=== PATIENT | female | born 1935 | race Caucasian/White ===

== ENCOUNTER → 2016-12-12 | Outpatient (CLI) | payer OTHER ==
[~2016-12-12] MED LIST: ACCUPRIL PO; ACCUPRIL40 MG PO; ALLEGRA PO; AMLODIPINE BESYL5 MG PO; ASPIRIN ENTERI325 M1 PO; ASPIRIN81 MG PO; ASPIRINEC PO; CALTRATE PLUS T1 TAB PO; CARVEDILOL6.25 MG; CLOPIDOGREL BIS75 MG PO; CYMBALTA PO; DARVOCET-N 1001 TA1 PO; DARVOCET-N 1001 TAB PO; DEXILANT60 MG PO; DULOXETINE HCL60 MG PO; ELIQUIS5 MG PO; FLEXERIL PO; FLEXERIL10 MG PO; FLONASE 0.05% N16 GM; GARLIC; HYDROCHLOROTH12.5 M1 PO; HYDROCHLOROTH12.5 MG PO; HYDROCODON-ACE1 EAC7 PO; HYDROCODON-ACE1 EAC9 PO; HYDROCODONE-APA1 T33 PO; IMDUR-ER30 M2 PO; ISORDIL10 MG PO; ISOSORBIDE MONO60 M1 PO; K-DUR20 ME1 PO; LEVAQUIN PO; LORAZEPAM1 MG PO; LORTAB 7.5-5001 TAB PO; LYRICA PO; MELOXICAM15 MG; MELOXICAM15 MG PO; METOPROLOL TART25 MG PO; MOBIC PO; NEXIUM PO; NITROGLYGERIN0.4 MG SL; NITROSTAT0.4 MG SL; NORVASC PO; NORVASC10 MG PO; PLAVIX PO; PRAVACHOL20 MG PO; PRAVACHOL80 MG PO; PRINIVIL40 MG; PRINIVIL40 MG PO; RANITIDINE HCL150 M1 PO; TENORETIC 100 T1 TAB PO; ULTRAM PO; VICODIN 5/500 T1 TAB PO; VIMOVO 500-201 EACH PO; VIT E; VITAMIN D 4001 UDTAB PO; XANAX0.5 MG PO
--- NOTE | ~2016-12-12 | MY11 ---
[facility] A Service [facility] RADIOLOGY TEXT RESULTS PATIENT: DAR WASHINGTON LOCATION: [facility] : 34 UNIT #: [id number] AGE: [address]: Gay Wright SEX: F ORDER DR: [id number] [place] [id number] O MR#: [id number] Acc #: [id number] NAME: DAR WASHINGTON : 1935 SEX: F STUDY DATE/TIME: 12/12/2016 11:46 UNIT: [facility] ROOM: STUDY DESCRIPTION: MY Mammogram Screening Dig Nick Attending Physician: Gay Wright A.P.R.N. Referring Physician: Gay Wright A.P.R.N. Ordering Physician: Gay Wright A.P.R.N. Primary Care Physician: Pina Alcantar M.D. MEDICAL IMAGING REPORT This report is preliminary unless electronic signature is present. EXAM Bilateral digital screening mammogram with CAD INDICATION Breast cancer screening. 81-year-old asymptomatic female who reports prior benign excisional biopsy of the right breast. Patient denies personal or family history of breast cancer. COMPARISON 09/12/2014, 09/09/2013, 07/20/2012, 07/01/2011, 06/10/2010, 02/10/2009, 02/07/2008, 06/19/2006. FINDINGS There are scattered fibroglandular tissues. No suspicious findings are present. IMPRESSION No mammographic evidence of malignancy. Annual screening mammography is recommended for as long as the patient is in good health ([employer]). A result letter will be sent to the patient. Patients over the age of 40 are entered into a reminder system with target due date for the next mammogram. BIRADS: 1 Negative Dictated by... [facility] A [facility] RADIOLOGY TEXT RESULTS PATIENT: DAR WASHINGTON LOCATION: [facility] : 34 UNIT #: [id number] AGE: [address]: Gay Wright SEX: F ORDER DR: Scott Acevedo M.D. THIS IS AN ELECTRONICALLY VERIFIED REPORT Scott Acevedo M.D. at 12/12/2016 5:33 PM EMELYN/william TD: 12/12/2016 13:58 JOB #: [id number] MEDICAL IMAGING REPORT Page 1 of 1
== END | disposition home or self-care (01) ==
LOC: SMAM 11:00
DX: Z12.31 Encounter for screening mammogram for malignant neoplasm of breast (principal); Z91.89 Other specified personal risk factors, not elsewhere classified
CPT/HCPCS: G0202

== ENCOUNTER 2017-01-03 15:56 | Observation (INO) | payer OTHER ==
--- NOTE | ~2017-01-03 | ST ---
Unit #: [id number] #: [id number] Patient: DAR WASHINGTON [id number] [facility]. [address] [address] [id number] I MR#: [id number] NAME: DAR WASHINGTON. : 1935 SEX: F STUDY DATE/TIME: 01/04/2017 UNIT: C3A PCU ROOM: [facility] STUDY DESCRIPTION: Attending Physician: Hugo Wells M.D. Primary Care Physician: Pina Alcantar M.D. CARDIOLOGY REPORT EXAM EKG portion of Lexiscan Cardiolite stress test. REASON FOR EXAM Chest pain. DISCUSSION Baseline EKG reveals atrial flutter with a ventricular rate of 96 beats per minute. Nonspecific ST-T wave changes noted. A total of 0.4 mg of Lexiscan was injected per protocol followed by Cardiolite. There were no complaints of chest pain. There were no arrhythmias noted from baseline. There were no ST or T wave changes to suggest ischemia. The patient's blood pressure did drop after Lexiscan was injected to 90/54 mmHg and she did have some nausea. Blood pressure improved to 103/53 and the nausea resolved. No reversal agent was given. Test was stopped due to protocol completion. IMPRESSION 1. Negative EKG portion of Lexiscan Cardiolite stress test. 2. There were no complaints of chest pain. 3. The patient's blood pressure did drop to 90/54 mmHg and she was nauseated but no reversal agent was required. Her blood pressure improved. 4. There were no sustained arrhythmias noted from baseline. 5. There were no ST or T wave changes to suggest ischemia. 6. Please correlate with Cardiolite images. Dictated by... Nery Fuentes APRN for Everardo Amador TD: 01/04/2017 15:30 JOB #: [id number] Unit #: [id number] #: [id number] Patient: DAR WASHINGTON CARDIOLOGY REPORT Page 1 of 1 X CARDIOLOGY REPORT
--- NOTE | ~2017-01-03 | EKG ---
PATIENT: DAR WASHINGTON UNIT #: [id number] Ventricular Rate: 82 BPM Atrial Rate: 85 BPM QRS Duration: 88 ms Q-T Interval: 392 ms QTC Calculation(Bezet): 457 ms Calculated R [place]: 12 degrees Calculated T [place]: 5 degrees Diagnosis Line: Atrial fibrillation Diagnosis Line: Abnormal ECG Diagnosis Line: When compared with ECG of 18-OCT-2015 10:59, Diagnosis Line: Atrial fibrillation has replaced Sinus rhythm Diagnosis Line: Nonspecific T wave abnormality now evident in Diagnosis Line: Inferior leads Diagnosis Line: Confirmed by NANO POZO MD ([id number]) on 01/05/2017 Diagnosis Line: 10:30:37 AM INTERPRETING MD: NOHELIA CAMARENA
--- NOTE | ~2017-01-03 | HP ---
Unit #: [id number] #: [id number] Patient: DAR WASHINGTON [id number] [facility]. [address] [place], [place] [address] [id number] I MR#: [id number] NAME: DAR WASHINGTON. ROOM: 302 Age: 81 Sex: F Admission Date: 01/03/2017 : 1935 Attending Physician: Hugo Wells M.D. Primary Care Physician: Pina Alcantar M.D. HISTORY AND PHYSICAL HISTORY OF PRESENT ILLNESS This is an 81-year-old white female previously known to Dr. Wells and now Dr. Herman with a past medical history of coronary artery disease status post cardiac catheterization on July 29, 2011 which revealed 90% stenosis in the LAD involving the first diagonal. The first obtuse marginal was 70% to 75%. Patient underwent PCI and drug-eluting stent in the LAD at the level of the diagonal. Additional past medical history includes: Hypertension, hyperlipidemia, GERD, osteoarthritis, rheumatoid arthritis, and mild valvular disease. A 2D echocardiogram, November 2009, revealed an ejection fraction of 60% with a mild mitral valve prolapse and mild mitral, tricuspid, and aortic regurgitation. Right ventricular systolic pressure was elevated at 40-50 suggesting moderate pulmonary hypertension. The patient states that she had another cardiac catheterization by Dr. Herman three to four years ago at [facility] which revealed a 90% stenosis. An additional stent was placed. She has had no stress test or cardiac catheterization since that time, according to her knowledge. Records were requested from [facility]. According to records though, the patient actually underwent a cardiac catheterization May 26, 2015. The right coronary artery was 80% which was reduced to zero percent with a Resolute drug-eluting stent. Obtuse marginal was 70% and mid to proximal LAD was 50% to 70%. She presented to the emergency department with complaints of chest pain. She states that over the past couple of days she has had intermittent episodes of chest pain. The pain is in her mid sternal to left anterior chest. It is described as tightness. It goes up into her neck. There are no associated symptoms of nausea, vomiting, or dyspnea. She has had some intermittent diaphoresis. She took some nitroglycerin on Monday and the pain resolved. All weekend, she felt just kind of weak and fatigued. On Monday, the pain returned while she was resting. She took another nitroglycerin. Her family urged her to come to the hospital. Her pain resolved quickly and she is currently asymptomatic. She denies any dizziness or syncope. She has had some occasional palpitations but not during episodes of pain. She does have a recent cough, which is nonproductive. She occasionally has swallowing issues but not regularly. She denies any lower extremity edema. In the emergency department, her temperature was 98.3, pulse 89, respirations 16, blood pressure 172/81 mmHg. Initial cardiac enzymes were negative. However, EKG revealed atrial flutter with a controlled ventricular rate of 82 beats per minute which is a new diagnosis according to the patient. Additional labs were unremarkable except for a low potassium of 3.3. She was started on aspirin and nitroglycerin. She was admitted for further observation of chest pain. Serial cardiac enzymes Unit #: [id number] #: [id number] Patient: DAR WASHINGTON were negative and she ruled out for a myocardial infarction. PAST MEDICAL HISTORY 1. Coronary artery disease, status post cardiac catheterization on May 26, 2015, per Dr. Herman, which revealed left ventricular end diastolic pressure 10 mmHg. Ejection fraction 50%. Left main normal. LAD proximal 50%, mid 70%. Left circumflex and obtuse marginal 70%. Right coronary artery 80%. Status post PCI and Resolute stent in the mid right coronary artery reducing stenosis to zero percent. 2. Previous cardiac catheterization, July 29, 2011, with PCI and drug-eluting stent in the LAD at the level of the diagonal. 3. A 2D echocardiogram, December 08, 2009, revealed an ejection fraction of 60%. Mild LVH. Mild mitral valve prolapse. Mild mitral regurgitation, tricuspid regurgitation, and aortic regurgitation. RVSP 40-50 mmHg suggesting moderate pulmonary hypertension. 4. Hypertension. 5. Hyperlipidemia. 6. GERD. 7. Osteoarthritis. 8. Rheumatoid arthritis. 9. Anxiety. 10. Nonsmoker. PAST SURGICAL HISTORY 1. Right rotator cuff repair. 2. Cholecystectomy. 3. Hysterectomy. 4. Breast biopsy which was negative for malignancy. 5. Bilateral knee surgery. 6. Right ankle fracture repair. HOME MEDICATIONS List of home medications include: 1. Amlodipine 5 mg p.o. daily. 2. Lisinopril 40 mg p.o. daily. 3. Meloxicam 15 mg p.o. daily. 4. Pravastatin 80 mg p.o. daily. 5. Dexilant 60 mg p.o. daily. 6. Isosorbide mononitrate 60 mg p.o. daily. 7. Cymbalta 60 mg p.o. daily. 8. Hydrochlorothiazide 12.5 mg p.o. daily. 9. S[place]uma 7.5/325 mg one tablet p.o. b.i.d. 10. Lorazepam 1 mg p.o. daily. SOCIAL HISTORY The patient is a nonsmoker. There are no reports of alcohol or illicit drug use. FAMILY HISTORY Significant for heart disease. REVIEW OF SYSTEMS A 10-point review of systems negative except for details noted above in HPI. PHYSICAL EXAMINATION VITAL SIGNS: Temperature 97.9, pulse 84, blood pressure 147/85. Unit #: [id number] #: [id number] Patient: DAR WASHINGTON CONSTITUTIONAL: This is an 81-year-old white female in no acute distress. SKIN: Warm and dry. NECK: Supple. No jugular vein distention. No hepatojugular reflux. Normal carotid upstrokes. No carotid bruits auscultated. HEART: S1, S2. Irregularly irregular. A soft systolic ejection murmur at the left sternal border. No rubs or gallops. LUNGS: Bilateral breath sounds have good air entry through all lung avina. Respirations even and nonlabored. No rales, rhonchi, or wheezes. ABDOMEN: Soft, nontender, nondistended. Positive bowel sounds auscultated x4 quadrants. No ascites noted. EXTREMITIES: Bilateral lower extremities have no pretibial pitting edema. DP and PT pulses 2+. Capillary refill less than 3 seconds. DIAGNOSTIC STUDIES LABORATORY: White blood cell count 4.4, hemoglobin 14.2, hematocrit 42.6, platelets 190,000. Sodium 140, potassium 3.3, chloride 105, CO2 of 26, BUN 11, creatinine 0.5, glucose 112. Troponin 0.03 and 0.03. INR 1. Total cholesterol 215, triglycerides 91, LDL 135, HDL 62. TSH 1.55. IMAGING: Chest x-ray reveals mild cardiomegaly with a tortuous aorta. CARDIOVASCULAR: Electrocardiogram reveals atrial flutter with a ventricular rate of 82 beats per minute. T-wave inversion in the inferior leads. QTc 457 ms. A 2D echocardiogram on January 04, 2017, revealed an ejection fraction of 65%. Moderate left ventricular hypertrophy. Mildly dilated left atrium. Aortic valve leaflet sclerotic with no stenosis. Moderate aortic regurgitation. Mitral annular calcification present. Moderate mitral valve prolapse. Moderate mitral regurgitation. Moderate tricuspid regurgitation. Right ventricular systolic pressure 38 mmHg. No pericardial effusion. IMPRESSION 1. Chest pain, questionably from angina pectoris. 2. Atrial fibrillation/atrial flutter, newly diagnosed, unknown duration. 3. Coronary artery disease with history of percutaneous coronary intervention and stent in the right coronary artery in May 2015 and left anterior descending at the level of the diagonal in July 2011. 4. Hypertension. 5. Hyperlipidemia. 6. Osteoarthritis. 7. Rheumatoid arthritis. 8. A 2D echocardiogram, January 04, 2017, revealed an ejection fraction of 65% with moderate mitral and tricuspid regurgitation as well as a moderate mitral valve prolapse. 9. Hypokalemia, supplemented. 10. Nonsmoker. PLAN The patient presented to the hospital with complaints of chest pain. Cardiac enzymes were negative and she ruled out for a myocardial infarction. She underwent a Lexiscan Cardiolite stress test and a 2D echocardiogram. Ejection fraction was normal and there was moderate valvular disease which can be managed medically. The patient's stress test revealed an extremely small area of possible stress-induced ischemia Unit #: [id number] #: [id number] Patient: DAR WASHINGTON involving the anteroapical wall of the left ventricle. The patient was recommended for cardiac catheterization versus medical management. She has decided on medical management for the time being. She has been started on metoprolol for control of atrial fibrillation. Her isosorbide has been increased to prevent chest pain. She could be considered for Ranexa as an outpatient. The cost of Eliquis has been assessed and is affordable at $8.25 per month. The patient has been started on Eliquis and has been instructed to follow up with her normal portfolio management marketing, Dr. Herman, as an outpatient. If in six to eight weeks her heart rate remains irregular, she could be considered for direct current cardioversion. She has been advised to return to the emergency department for worsening chest pain. Dictated by LUCIAN Roberts M.D. TR/ch TD: 01/04/2017 15:38 JOB #: [id number] HISTORY AND PHYSICAL Page 1 of 1 X X HISTORY AND PHYSICAL
--- NOTE | ~2017-01-03 | TH ---
Unit #: [id number] #: [id number] Patient: DAR WASHINGTON [id number] [address] [address] [id number] I MR#: [id number] NAME: DAR WASHINGTON. : 1935 SEX: F STUDY DATE/TIME: UNIT: C3A U ROOM: [facility] STUDY DESCRIPTION: Lexiscan stress test -Nuclear Attending Physician: Hugo Wells M.D. Primary Care Physician: Pina Alcantar M.D. CARDIOLOGY REPORT PROCEDURE PERFORMED Lexiscan Cardiolite stress test - Nuclear portion. PROCEDURE Using technetium 99m-labeled Cardiolite, rest and stress SPECT images were obtained. Multiple SPECT images were obtained in various views, including horizontal and vertical long axis and short axis views of the left ventricle. Images were obtained by gated SPECT method. The patient was administered 10.9 mCi of Cardiolite at rest. The patient was administered 27.5 mCi of Cardiolite after Lexiscan infusion was completed. On the stress images, there is an extremely small area of mildly decreased tracer uptake activity in the anteroseptal wall. The rest images show normal perfusion. Comparing the rest and stress images, an extremely small area of possible stress-induced ischemia involving the anteroseptal wall of the left ventricle cannot be ruled out. The left ventricular ejection fraction is calculated to be 59%. There no focal wall motion abnormality seen. CONCLUSION 1. An extremely small area of possible stress-induced ischemia involving the anteroapical wall of the left ventricle cannot be ruled out. 2. The left ventricular ejection fraction is calculated to be 59%. 3. There no focal wall motion abnormality seen. 4. Technically limited study. Clinical correlation is requested. Dictated by... Everardo Amador TD: 01/04/2017 15:11 JOB #: [id number] Unit #: [id number] #: [id number] Patient: DAR WASHINGTON CARDIOLOGY REPORT Page 1 of 1 X Quin Hernandez MD <ELECTRONICALLY SIGNED> 03/11/17 1426 CARDIOLOGY REPORT
--- NOTE | ~2017-01-03 | CR72 ---
[facility] A Service of [facility] & [facility] RADIOLOGY TEXT RESULTS PATIENT: DAR WASHINGTON LOCATION: [facility] 302-01 : 34 UNIT #: [id number] AGE: [address]: Hugo Wells MD SEX: F ORDER DR: [id number] [facility] [address] [facility] [address] [facility]. [place], [place] [address] [id number] E MR#: [id number] Acc #: [id number] NAME: DAR WASHINGTON. : 1935 SEX: F STUDY DATE/TIME: 01/03/2017 16:23 UNIT: [facility] ROOM: STUDY DESCRIPTION: CR Chest Single View Portable Attending Physician: Dinesh Bolivar M.D. Ordering Physician: Dinesh Bolivar M.D. Primary Care Physician: Pina Alcantar M.D. MEDICAL IMAGING REPORT This report is preliminary unless electronic signature is present EXAM Portable chest HISTORY Chest pain onset 3 days ago. TECHNIQUE A single AP view chest was obtained and compared with 10/18/2015. FINDINGS Since previous examination, no new infiltrates are seen. Both lungs are clear with normal vascular markings. Heart size is upper limits of normal and the aorta is tortuous and calcified. IMPRESSION Mild cardiomegaly with a tortuous aorta. No active pulmonary disease. Dictated by... Guy Shepherd M.D. THIS IS AN ELECTRONICALLY VERIFIED REPORT Guy Shepherd M.D. at 01/03/2017 10:17 PM RLF/pcl TD: 01/03/2017 17:48 JOB #: [id number] MEDICAL IMAGING REPORT Page 1 of 1 COPY
[~2017-01-03 15:56] MED LIST changes: -AMLODIPINE BESYL5 MG PO; -ASPIRIN81 MG PO; -CLOPIDOGREL BIS75 MG PO; -DEXILANT60 MG PO; -DULOXETINE HCL60 MG PO; -ELIQUIS5 MG PO; -HYDROCHLOROTH12.5 M1 PO; -HYDROCODON-ACE1 EAC9 PO; -ISOSORBIDE MONO60 M1 PO; -LORAZEPAM1 MG PO; -LYRICA PO; -MELOXICAM15 MG PO; -METOPROLOL TART25 MG PO; -NITROSTAT0.4 MG SL; -PRAVACHOL80 MG PO; -PRINIVIL40 MG PO
[2017-01-03 16:50] LABS: BASOPHIL% 0.8 % (0-2.5); DIFF IND NO; EOSINOPHIL# 0.1 X10e3 (0-0.7); EOSINOPHIL% 1.6 % (0.0-7.0); HEMATOCRIT 40.1 % (35.0-45.0); HEMOGLOBIN 13.3 gm/dL (12.0-16.0); LYMPHOCYTE# 0.9 X10e3 (1.0-3.5); LYMPHOCYTE% 20.7 % (17.0-45.0); MEAN CELL VOLUME 86.3 FL (83-96); MEAN CORPUSCULAR HEMOGLOBIN 28.6 PG (28-34); MEAN CORPUSCULAR HGB CONC 33.1 g/dL (30-36); MEAN PLATELET VOLUME 8.3 FL (6.5-11.5); MONOCYTE# 0.5 X10e3 (0-1.0); MONOCYTE% 10.2 % (3.0-12.0); NEUTROPHIL% 66.7 % (40-75); PLATELET COUNT 191 X10e3 (140-420); RED BLOOD COUNT 4.65 X10e (3.90-5.30); RED CELL DISTRIBUTION WIDTH 14.3 % (11.0-15.5); WHITE BLOOD COUNT 4.5 X10e3 (4.0-10.5)
[2017-01-03 17:17] LABS: POC - CKMB <1.0 ng/mL (0.0-7.9); POC - TROPONIN <0.05 ng/mL (<=0.05)
[2017-01-03 17:20] LABS: ALBUMIN SERUM 3.9 g/dL (3.5-5.0); BILIRUBIN, DIRECT 0.1 mg/dL (0.0-0.2); BILIRUBIN,INDIRECT 0.7 mg/dL (0.0-0.9); BILIRUBIN,TOTAL 0.8 mg/dL (0.2-2.0); CALCIUM SERUM 8.7 mg/dL (8.4-10.2); CREATININE SERUM 0.7 mg/dL (0.6-1.4); GLOM FILT RATE Estimated 80.7 mL/min (>60); POTASSIUM 3.6 mmol/L (3.5-5.1); PROTEIN TOTAL SERUM 6.9 g/dL (6.0-8.3)
[2017-01-03 17:24] LABS: PARTIAL THROMBOPLASTIN TIME 25.4 SECONDS (23.5-31.3)
[2017-01-03] MEDS ORDERED: AMLODIPINE BESYL5 MG PO (20:52)
[2017-01-03] MEDS ORDERED: PRINIVIL40 MG PO (21:07)
[2017-01-03] MEDS ORDERED: PRAVACHOL80 MG PO (21:08)
[2017-01-03] MEDS ORDERED: MELOXICAM15 MG PO (21:08)
[2017-01-03] MEDS ORDERED: ISOSORBIDE MONO60 M1 PO (21:09)
[2017-01-03] MEDS ORDERED: DEXILANT60 MG PO (21:09)
[2017-01-03] MEDS ORDERED: DULOXETINE HCL60 MG PO (21:10)
[2017-01-03] MEDS ORDERED: CLOPIDOGREL BIS75 MG PO (21:10)
[2017-01-03] MEDS ORDERED: HYDROCHLOROTH12.5 M1 PO (21:11)
[2017-01-03] MEDS ORDERED: HYDROCODON-ACE1 EAC9 PO (21:12)
[2017-01-03] MEDS ORDERED: LORAZEPAM1 MG PO (21:13)
[2017-01-04 01:33] LABS: CK TOTAL 59 IU/L (26-140)
[2017-01-04 06:37] LABS: EOSINOPHIL# 0.1 X10e3 (0-0.7); EOSINOPHIL% 2.1 % (0.0-7.0); HEMATOCRIT 42.6 % (35.0-45.0); HEMOGLOBIN 14.2 gm/dL (12.0-16.0); LYMPHOCYTE% 23.1 % (17.0-45.0); MEAN CELL VOLUME 85.8 FL (83-96); MEAN CORPUSCULAR HEMOGLOBIN 28.5 PG (28-34); MEAN CORPUSCULAR HGB CONC 33.3 g/dL (30-36); MEAN PLATELET VOLUME 8.3 FL (6.5-11.5); MONOCYTE# 0.6 X10e3 (0-1.0); MONOCYTE% 13.2 % (3.0-12.0); NEUTROPHIL# 2.6 X10e3 (1.5-7.1); NEUTROPHIL% 60.6 % (40-75); PLATELET COUNT 190 X10e3 (140-420); RED BLOOD COUNT 4.96 X10e (3.90-5.30); RED CELL DISTRIBUTION WIDTH 14.6 % (11.0-15.5); WHITE BLOOD COUNT 4.4 X10e3 (4.0-10.5)
[2017-01-04 06:40] LABS: DIFF IND NO
[2017-01-04 06:59] LABS: CK TOTAL 56 IU/L (26-140)
[2017-01-04 07:10] LABS: CREATININE SERUM 0.5 mg/dL (0.6-1.4); GLOM FILT RATE Estimated 90.1 mL/min (>60); POTASSIUM 3.3 mmol/L (3.5-5.1)
[2017-01-04 09:47] LABS: CHOLESTEROL 215 mg/dL (0-200); HDL CHOLESTEROL 62 mg/dL (35-95); LDL/HDL RATIO 2 RATIO (0-4); TRIGLYCERIDES 91 mg/dL (10-160)
[2017-01-04 09:52] LABS: LDL CHOLESTEROL 135 mg/dL (-130)
[2017-01-04] MEDS ORDERED: ASPIRIN81 MG PO (16:28)
[2017-01-04] MEDS ORDERED: NITROSTAT0.4 MG SL (16:31)
[2017-01-04] MEDS ORDERED: METOPROLOL TART25 MG PO (16:32)
[2017-01-04] MEDS ORDERED: ELIQUIS5 MG PO (16:33)
== END 2017-01-04 16:45 | disposition home or self-care (01) ==
LOC: CED 15:56 → CEDOF 18:00 → CED 18:39 → CEDOF 21:24 → C3A PCU 21:24
PROVIDERS: Emergency Medicine; Internal Medicine Cardiovascular Disease
DX: R07.89 Other chest pain (principal); I51.7 Cardiomegaly; I77.1 Stricture of artery; I08.3 Combined rheumatic disorders of mitral, aortic and tricuspid valves; I34.1 Nonrheumatic mitral (valve) prolapse; I48.91 Unspecified atrial fibrillation; I25.10 Atherosclerotic heart disease of native coronary artery without angina pectoris; Z95.5 Presence of coronary angioplasty implant and graft; I10 Essential (primary) hypertension; E78.5 Hyperlipidemia, unspecified; K21.9 Gastro-esophageal reflux disease without esophagitis; R42 Dizziness and giddiness; M19.90 Unspecified osteoarthritis, unspecified site; M06.9 Rheumatoid arthritis, unspecified; F41.9 Anxiety disorder, unspecified; Z79.899 Other long term (current) drug therapy; Z90.49 Acquired absence of other specified parts of digestive tract; Z90.710 Acquired absence of both cervix and uterus; Z98.890 Other specified postprocedural states
CPT/HCPCS: 36415; 71010; 78452; 80048; 80061; 80076; 82550; 82553; 84443; 84484; 85025; 85610; 85730; 93005; 93017; 93306; 96372; 96374; 99285; A9500; G0378; J0360; J1650; J2405; J2785

== ENCOUNTER 2017-03-19 13:22 | Emergency (ER) | payer OTHER ==
--- NOTE | ~2017-03-19 | CR181 ---
[facility] A Service of [facility] RADIOLOGY TEXT RESULTS PATIENT: DAR WASHINGTON LOCATION: SED : 34 UNIT #: [id number] AGE: [address]: Shanel Ramos SEX: F ORDER DR: [id number] [place] [address] [id number] E MR#: [id number] Acc #: [id number] NAME: DAR WASHINGTON. : 1935 SEX: F STUDY DATE/TIME: 03/19/2017 14:08 UNIT: SED ROOM: STUDY DESCRIPTION: CR Lumbar Spine 2 or 3 Views Attending Physician: Shanel Ramos P.A.-C. Ordering Physician: Shanel Ramos P.A.-C. Primary Care Physician: Pina Alcantar M.D. MEDICAL IMAGING REPORT This report is preliminary unless electronic signature is present. EXAM Lumbar spine series INDICATION Back pain and left hip pain after a fall 1 week ago. PROCEDURE 3 views of the lumbar spine COMPARISON None. FINDINGS Multilevel degenerative change. Lumbar vertebral height is preserved. Multilevel facet arthrosis. IMPRESSION 1. Multilevel degenerative change including probably significant neural foraminal narrowing in the lower lumbar spine. 2. No definite acute findings. Dictated by... Diego Gallegos M.D. THIS IS AN ELECTRONICALLY VERIFIED REPORT Diego Gallegos M.D. at 03/21/2017 5:02 PM EED/myrtle TD: 03/19/2017 22:58 JOB #: [id number] [facility] A Service of [facility] RADIOLOGY TEXT RESULTS PATIENT: DAR WASHINGTON LOCATION: SED : 34 UNIT #: [id number] AGE: [address]: Shanel Ramos SEX: F ORDER DR: MEDICAL IMAGING REPORT Page 1 of 1
--- NOTE | ~2017-03-19 | CR150 ---
[facility] A Service of [facility] RADIOLOGY TEXT RESULTS PATIENT: DAR WASHINGTON LOCATION: SED : 34 UNIT #: [id number] AGE: [address]: Shanel Ramos SEX: F ORDER DR: [id number] [place] [address] [id number] E MR#: [id number] Acc #: [id number] NAME: DAR WASHINGTON : 1935 SEX: F STUDY DATE/TIME: 03/19/2017 14:08 UNIT: SED ROOM: STUDY DESCRIPTION: CR Hip Min 2 Views Lt Attending Physician: Shanel Ramos P.A.-C. Ordering Physician: Shanel Ramos P.A.-C. Primary Care Physician: Pina Alcantar M.D. MEDICAL IMAGING REPORT This report is preliminary unless electronic signature is present. EXAM Left hip series INDICATIONS Left hip pain after a fall 1 week ago. PROCEDURE Frontal view of the pelvis, lateral view left hip. COMPARISON None FINDINGS Bilateral hip arthrosis. No acute fracture or dislocation. IMPRESSION No acute findings. Dictated by... Diego Gallegos M.D. THIS IS AN ELECTRONICALLY VERIFIED REPORT Diego Gallegos M.D. at 03/21/2017 5:02 PM EED/psc TD: 03/19/2017 23:03 JOB #: [id number] MEDICAL IMAGING REPORT Page 1 of 1
[~2017-03-19 13:22] MED LIST changes: +AMLODIPINE BESYL5 MG PO; +ASPIRIN81 MG PO; +CLOPIDOGREL BIS75 MG PO; +DEXILANT60 MG PO; +DULOXETINE HCL60 MG PO; +ELIQUIS5 MG PO; +HYDROCHLOROTH12.5 M1 PO; +HYDROCODON-ACE1 EAC9 PO; +ISOSORBIDE MONO60 M1 PO; +LORAZEPAM1 MG PO; +MELOXICAM15 MG PO; +METOPROLOL TART25 MG PO; +NITROSTAT0.4 MG SL; +PRAVACHOL80 MG PO; +PRINIVIL40 MG PO
[2017-03-19] MEDS ORDERED: LYRICA PO (13:37)
[2017-03-19 14:28] LABS: URINE SOURCE CLEAN CATCH
[2017-03-19 14:30] LABS: URINE APPEARANCE CLEAR; URINE BILIRUBIN NEG (NEG); URINE BLOOD NEG (NEG); URINE COLOR YELLOW; URINE GLUCOSE NEG (NORM); URINE KETONE NEG (NEG); URINE LEUKOCYTE ESTERASE 1+ (NEG); URINE NITRATE NEG (NEG); URINE PH 6.5 (5-8); URINE PROTEIN TRACE (NEG)
[2017-03-19 14:33] LABS: MICRO INDICATED? YES
[2017-03-19 14:45] LABS: URINE BACTERIA 1+ (NEG); URINE RBC 0-2 /[HPF] (0-2); URINE SQUAMOUS EPITHELIAL CELL OCCAS /[HPF]
== END 2017-03-19 15:26 | disposition home or self-care (01) ==
LOC: SED 13:22
PROVIDERS: Physician Assistant
DX: S33.5XXA Sprain of ligaments of lumbar spine, initial encounter (principal); S70.02XA Contusion of left hip, initial encounter; Z23 Encounter for immunization; I10 Essential (primary) hypertension; I25.2 Old myocardial infarction; Z88.0 Allergy status to penicillin; Z88.5 Allergy status to narcotic agent; Z79.899 Other long term (current) drug therapy; W19.XXXA Unspecified fall, initial encounter; Y92.22 Religious institution as the place of occurrence of the external cause
CPT/HCPCS: 72100; 73502; 81003; 90471; 90715; 99283

== ENCOUNTER 2017-05-04 06:27 | Emergency (ER) | payer OTHER ==
[~2017-05-04] VITALS: Ht 157.5 cm; Wt 88.5 kg
--- NOTE | ~2017-05-04 | CT52 ---
[facility] A Service of [facility] RADIOLOGY TEXT RESULTS PATIENT: DAR WASHINGTON LOCATION: [facility] : 34 UNIT #: [id number] AGE: [address]: Jamil Duran MD SEX: F ORDER DR: [id number] [facility] [address] [place], [place] [address] [id number] E MR#: [id number] Acc #: [id number] NAME: DAR WASHINGTON. : 1935 SEX: F STUDY DATE/TIME: 05/04/2017 7:34 UNIT: [facility] ROOM: STUDY DESCRIPTION: CT Cervical Spine Wo Cont Attending Physician: Jamil Duran M.D. Ordering Physician: Jamil Duran M.D. Primary Care Physician: Pina Alcantar M.D. MEDICAL IMAGING REPORT This report is preliminary unless electronic signature is present EXAM CT cervical spine, 05/04/2017 HISTORY 81-year-old female in the ED after head injury. Fell, striking anterior skull this morning prior to arrival. She complains of head pain and neck pain. TECHNIQUE Thin-section axial CT images from the skull base through the upper margin of T2. Sagittal and coronal images were reconstructed. This CT exam was performed with one or more of the following radiation dose reduction techniques: automatic exposure control, adjustment of mA and/or kV according to patient size, and iterative reconstruction. FINDINGS No fracture or other acute osseous abnormality is demonstrated. Severe multilevel bilateral degenerative facet arthropathy throughout the entire cervical spine with grade 1 anterolisthesis at C4-5 and minimal anterolisthesis at C5-6. Moderate degenerative disc space changes at C6-7. IMPRESSION 1. No fracture or other acute osseous abnormality involving the cervical spine. 2. Severe bilateral degenerative facet arthropathy throughout the cervical spine with grade 1 anterolisthesis at C4-5 and C5-6. 3. Moderate degenerative disc space changes at C6-7. Dictated by... Markos Benedict M.D. [facility] A Service of [facility] RADIOLOGY TEXT RESULTS PATIENT: DAR WASHINGTON LOCATION: [facility] : 34 UNIT #: [id number] AGE: [address]: Jamil Duran MD SEX: F ORDER DR: THIS IS AN ELECTRONICALLY VERIFIED REPORT Markos Benedict M.D. at 05/04/2017 3:39 PM Serina TD: 05/04/2017 12:53 JOB #: [id number] MEDICAL IMAGING REPORT Page 1 of 1 COPY
--- NOTE | ~2017-05-04 | CR21 ---
[facility] A Service of [facility] RADIOLOGY TEXT RESULTS PATIENT: DAR WASHINGTON LOCATION: [facility] : 34 UNIT #: [id number] AGE: [address]: Jamil Duran MD SEX: F ORDER DR: [id number] [facility] [address] [place], [place] [address] [id number] E MR#: [id number] Acc #: [id number] NAME: DAR WASHINGTON : 1935 SEX: F STUDY DATE/TIME: 05/04/2017 7:11 UNIT: [facility] ROOM: STUDY DESCRIPTION: CR Ankle Min 3 Views Rt Attending Physician: Jamil Duran M.D. Ordering Physician: Jamil Duran M.D. Primary Care Physician: Pina Alcantar M.D. MEDICAL IMAGING REPORT This report is preliminary unless electronic signature is present EXAM Right ankle, 3 views. HISTORY Lower leg and ankle pain after fall today. FINDINGS Three views of the right ankle demonstrates postoperative changes from ORIF of a distal fibular fracture and a single tibial screw across the distal tibia from anterior to posterior. This demonstrates distal threads and was placed for apparent fixation of a posterior malleolar fracture. Ankle mortise appears intact. Soft tissues unremarkable except for a small amount of anterior ankle soft tissue swelling. IMPRESSION Status post ORIF of a distal fibular and posterior malleolar fractures, which appear well healed. Minimal residual fracture deformity noted in the proximal fibula. No fracture or loosening of instrumentation. Minimal anterior ankle soft tissue swelling. Dictated by... Stephen Rodriguez M.D. THIS IS AN ELECTRONICALLY VERIFIED REPORT Stephen Rordiguez M.D. at 05/04/2017 2:32 PM ANNALISA/santo TD: 05/04/2017 13:31 JOB #: [id number] MEDICAL IMAGING REPORT Page 1 of 1 COPY
--- NOTE | ~2017-05-04 | CT71 ---
[facility] A Service of [facility] RADIOLOGY TEXT RESULTS PATIENT: DAR WASHINGTON LOCATION: [facility] : 34 UNIT #: [id number] AGE: [address]: Jamil Duran MD SEX: F ORDER DR: [id number] [facility] [address] [place], [place] [address] [id number] E MR#: [id number] #: [id number] NAME: DAR WASHINGTON. : 1935 SEX: F STUDY DATE/TIME: 05/04/2017 7:36 UNIT: [facility] ROOM: STUDY DESCRIPTION: CT Head Wo Contrast Attending Physician: Jamil Duran M.D. Ordering Physician: Jamil Duran M.D. Primary Care Physician: Pina Alcantar M.D. MEDICAL IMAGING REPORT This report is preliminary unless electronic signature is present EXAM CT head, noncontrast, 05/04/2017 HISTORY 81-year-old female in the ED after head injury. Fell, striking forehead this morning prior to arrival. Head tenderness and neck pain. TECHNIQUE CT examination of the head without IV contrast. This CT exam was performed with one or more of the following radiation dose reduction techniques: automatic exposure control, adjustment of mA and/or kV according to patient size, and iterative reconstruction. COMPARISON CT head, 12/09/2009 FINDINGS No acute intracranial abnormality is demonstrated, and there is no visible skull fracture. Hjua-lj-zrlzceba generalized cerebral and cerebellar atrophy. Moderate diffuse low attenuation white matter changes are nonspecific but likely related to chronic small vessel disease. These findings are present on the previous study although somewhat more progressive today. No evidence of intracranial hemorrhage, mass, mass effect, acute cerebral edema or significant ventricular enlargement. Minimal mucosal thickening is noted within the ethmoid and sphenoid sinuses. IMPRESSION 1. No acute intracranial abnormality. No skull fracture. 2. Moderate diffuse chronic changes as noted above. [facility] A Service [facility] RADIOLOGY TEXT RESULTS PATIENT: DAR WASHINGTON LOCATION: [facility] : 34 UNIT #: [id number] AGE: [address]: Jamil Duran MD SEX: F ORDER DR: Dictated by... Markos Benedict M.D. THIS IS AN ELECTRONICALLY VERIFIED REPORT Markos Benedict M.D. at 05/04/2017 3:39 PM Serina TD: 05/04/2017 12:51 JOB #: [id number] MEDICAL IMAGING REPORT Page 1 of 1 COPY
--- NOTE | ~2017-05-04 | CR253 ---
[facility] A Service of [facility] RADIOLOGY TEXT RESULTS PATIENT: DAR WASHINGTON LOCATION: [facility] : 34 UNIT #: [id number] AGE: [address]: Jamil Duran MD SEX: F ORDER DR: [id number] [facility] [address] [place], [place] [address] [id number] E MR#: [id number] Acc #: [id number] NAME: DAR WASHINGTON. : 1935 SEX: F STUDY DATE/TIME: 05/04/2017 7:10 UNIT: [facility] ROOM: STUDY DESCRIPTION: CR Tibia and Fibula 2 Views Rt Attending Physician: Jamil Duran M.D. Ordering Physician: Jamil Duran M.D. Primary Care Physician: Pina Alcantar M.D. MEDICAL IMAGING REPORT This report is preliminary unless electronic signature is present EXAM Right lower leg. HISTORY Pain in right lower leg and ankle today. Patient fell. FINDINGS Two views of the right lower leg demonstrates postsurgical changes from previous right total knee arthroplasty. Patient has also undergone ORIF of ankle fracture with a lateral fixation plate distal fibula with 2 proximal and 2 distal screws and a single AP screw across the distal tibia for apparent fixation of a posterior malleolar fracture. The fracture appears healed. Minimal residual fracture deformity noted in the proximal fibula. No acute fracture identified. Soft tissues unremarkable. IMPRESSION 1. No acute findings. 2. Status post right total knee arthroplasty. 3. Status post ORIF of ankle fracture which appears healed. Dictated by... Stephen Rodriguez M.D. THIS IS AN ELECTRONICALLY VERIFIED REPORT Stephen Rodriguez M.D. at 05/04/2017 2:31 PM ANNALISA/brandi TD: 05/04/2017 13:30 JOB #: [id number] MEDICAL IMAGING REPORT Page 1 of 1 COPY
[~2017-05-04 06:27] MED LIST changes: +LYRICA PO
== END 2017-05-04 08:50 | disposition home or self-care (01) ==
LOC: CED 06:27
DX: S93.401A Sprain of unspecified ligament of right ankle, initial encounter (principal); I48.91 Unspecified atrial fibrillation; Z88.0 Allergy status to penicillin; Z88.5 Allergy status to narcotic agent; Z79.899 Other long term (current) drug therapy; W01.198A Fall on same level from slipping, tripping and stumbling with subsequent striking against other object, initial encounter; Y92.009 Unspecified place in unspecified non-institutional (private) residence as the place of occurrence of the external cause
CPT/HCPCS: 29405; 70450; 72125; 73590; 73610; 99284